=== PATIENT | male | born 1950 | race Two or more races ===

== ENCOUNTER 2018-12-22 21:54 | Inpatient (IN) | payer MEDICARE, OTHER ==
[~2018-12-22] VITALS: Ht 170.2 cm; Wt 68.9 kg
--- NOTE | 2018-12-22 22:00 | NUR ---
PT SHEREE FROM STREET +ETOH. ON ARRIVAL PT HYPOTENSIVE, AWARE. PT PLACED ON MONITOR, WILL CONTINUE TO MONITOR.
[2018-12-22] MEDS ORDERED: IV NS 0.9% 1,000 ML BAG IV ONE (23:00)
--- NOTE | 2018-12-22 23:00 | NUR ---
LICENSED TAX CONSULTANT AT BEDSIDE FOR BLOOD DRAW
[2018-12-22 23:11] LABS: BASOPHILS % (AUTO) 0.2 % (0.0-2.0); EOSINOPHILS % (AUTO) 2.6 % (0.0-6.0); HEMATOCRIT 49 % (39-51); LYMPHOCYTES # (AUTO) 3.2 /CMM (0.8-4.8); LYMPHOCYTES % (AUTO) 28.3 % (20.0-44.0); MEAN CORPUSCULAR HGB CONC 33 g/dl (31.0-36.0); MEAN CORPUSCULAR VOLUME 102 fL (80-96); MONOCYTES # (AUTO) 0.8 /CMM (0.1-1.30); NEUTROPHILS % (AUTO) 61.9 % (43.0-81.0); PLATELET COUNT (AUTO) 121 /CMM (150-450); WHITE BLOOD COUNT (AUTO) 11.3 K/uL (4.3-11.0)
[2018-12-22 23:23] LABS: CALCIUM, SERUM 9.5 mg/dL (8.5-10.1); CARBON DIOXIDE 18 mmol/L (21-32); CHLORIDE 98 mmol/L (98-107); CREATININE 2.1 mg/dL (0.6-1.3); GLUCOSE 86 mg/dL (74-106); POTASSIUM 5.2 mmol/L (3.5-5.1); SODIUM SERUM 132 mmol/L (136-145); UREA NITROGEN, BLOOD 30 mg/dL (7-18)
[2018-12-22 23:29] LABS: ALANINE AMINOTRANSFERASE 135 U/L (12-78); ALBUMIN 3.4 g/dL (3.4-5.0); ALCOHOL, BLOOD 101 mg/dL (0-0); ALKALINE PHOSPHATASE 151 U/L (46-116); ASPARTATE AMINOTRANSFERASE 152 U/L (15-37); BILIRUBIN,DIRECT 0.6 mg/dL (0.0-0.2); BILIRUBIN,TOTAL 1.2 mg/dL (0.2-1.0); TOTAL PROTEIN, SERUM 9.3 g/dL (6.4-8.2)
[2018-12-22 23:30] LABS: ACETAMINOPHEN 0 ug/ml (10-30); SALICYLATE 1.1 mg/dL (2.8-20.0)
--- NOTE | 2018-12-22 23:56 | NUR ---
RT CALLED FOR ABG
[2018-12-23] VITALS (7 sets, daily range): BP systolic 121–168; BP diastolic 67–82
[2018-12-23] MEDS ORDERED: VANCOMYCIN 1 GM in IV D5W 250 ML IV ONE ×2
[2018-12-23] MEDS ORDERED: IV NS 0.9% 1,000 ML BAG IV ONE
[2018-12-23] MEDS ORDERED: PIPERACILLIN /TAZOBACTAM 3.375 G in IV D5W 50 ML IV ONE ×2
--- NOTE | 2018-12-23 00:18 | NUR ---
EPIC CABIN MAN PAGED
[2018-12-23 00:22] LABS: ABG BASE EXCESS -9.2 mmol/L; ABG OXYGEN SATURATION 95.9 % (92.0-98.5); ABG PCO2 33.5 mmHg (35.0-45.0); ABG PH 7.299 (7.350-7.450); ABG PO2 99.4 mmHg (75.0-100.0); AaDO2 10.2 mmHg; COHb 1.1 % (0.5-1.5); MetHb 0.4 % (0.0-1.5); O2Hb 94.5 % (94.0-97.0); SITE, ABG Right Brachial; VENT MODE, BG ROOM AIR
[2018-12-23] MEDS ORDERED: ONDANSETRON HCL/PF 4 MG/2 ML VIAL IVP PRN (00:30)
[2018-12-23] MEDS ORDERED: MAGNESIUM HYDROXIDE 30 ML UDC PO PRN (00:30)
[2018-12-23] MEDS ORDERED: MAG HYDROX/AL HYDROX/SIMETH 30 ML UDC PO PRN (00:30)
[2018-12-23] MEDS ORDERED: ACETAMINOPHEN 650 MG/SUPP.RECT RC PRN (00:30)
[2018-12-23] MEDS ORDERED: LORAZEPAM INJ 2 MG/ML VIAL IV PRN (00:30)
--- NOTE | 2018-12-23 00:37 | NUR ---
CALLED FOR TELE BED
[2018-12-23 00:41] LABS: APPEARANCE,URINE Clear (CLEAR); BILIRUBIN,URINE Negative (NEGATIVE); BLOOD, URINE Trace-intact Ery/uL (NEGATIVE); COLOR,URINE Yellow (YELLOW); KETONES,URINE Negative (NEGATIVE); LEUKOCYTE ESTERASE ,URINE Negative (NEGATIVE); NITRITE, URINE Negative (NEGATIVE); PH,URINE 5.5 (5.0-8.0); PROTEIN,URINE Negative (NEGATIVE); UGLUCOSE Negative (NEGATIVE); UROBILINOGEN,URINE 0.2 EU/dL (0.2)
--- NOTE | 2018-12-23 00:54 | NUR ---
BED ASSIGNMENT 308-1
[2018-12-23 01:02] LABS: BACTERIA,URINE Few /HPF (None Seen); RBC,URINE 0-2 /HPF (0-2); SQUAMOUS EPITHELIAL CELL,UR Rare /HPF (None Seen); WBC,URINE 0-2 /HPF (0-3)
--- NOTE | 2018-12-23 01:05 | NUR ---
GAVE REPORT TO JANICE BATRES FOR JALEEL
[2018-12-23] MEDS ORDERED: PIPERACILLIN /TAZOBACTAM 3.375 G VIAL IV ONE (01:19)
[2018-12-23] MEDS ORDERED: VANCOMYCIN 1 GM in IV D5W 250ml IV SCH (01:30)
--- NOTE | 2018-12-23 02:00 | NUR ---
PT TRANSFERRED PER ACLS PROTOCOL. ENDORSE VANCOMYCIN ORDER TO JANICE BATRES
[2018-12-23] MEDS ORDERED: VANCOMYCIN 1 GM VIAL ONE (02:31)
--- NOTE | 2018-12-23 02:45 | NUR ---
PATIENT ADMITTED FROM ER THIS MORNING, VERY DROWSY AND NOT REALLY ANSWERING QUESTIONS. HE IS NOT IN RESPIRATORY DISTRESS. NO ADEQUATE RESPONSE FROM PATIENT. ON RA O2 SATURATION IS 99%. HE HAS BEEN MADE COMFORTABLE IN BED AND COMMENCED ON TREATMENT. WILL MONITOR.
[2018-12-23] MEDS ORDERED: VANCOMYCIN 1 GM in IV D5W 250 ML IV SCH (03:00)
[2018-12-23] MEDS ORDERED: Thiamine 100 MG/ML VIAL ONE (03:03)
[2018-12-23] MEDS: Thiamine 100 MG in IV D5W 50 ML IV SCH (03:41)
[2018-12-23] MEDS: IV NS 0.9% 1,000 ML IV PRN (03:43)
[2018-12-23] MEDS ORDERED: PIPERACILLIN /TAZOBACTAM 2.25 G in IV D5W 50 ML IV SCH (05:00)
[2018-12-23 06:36] LABS: THYROID STIMULATING HORMONE 0.581 uIU/mL (0.358-3.74)
[2018-12-23 07:04] LABS: MAGNESIUM 1.7 mg/dL (1.8-2.4); PHOSPHORUS 4.9 mg/dL (2.5-4.9)
--- NOTE | 2018-12-23 07:30 | NUR ---
DISTRICT SERVICE MANAGER OPENING NOTE RECEIVED PT IN BED, ALERT AND ORIENTED X3-4, DENIES CHEST PAIN, SOB, N/V, BREATHING IS EVEN AND UNLABORED ON ROOM AIR. NO ACUTE DISTRESS NOTED AT THIS TIME, PT ON ACCOUNTS COLLECTOR AND IS SINUS RHYTHM, HR 68 WITH SLIGHTLY ELEVATED P WAVE, K LEVEL UPON ADMISSION 5.2, WILL FOLLOW UP WITH MD. RIGHT AND LEFT FA #22G IVS ARE PATENT, CLEAN, DRY AND INTACT. PT NPO PENDING SWALLOW EVAL, ALL NEEDS ATTENDED TO. BED IS LOCKED AND IN LOWEST POSITION, SIDE RAILS UP X2, BED ALARM ON, CALL LIGHT AND POSSESSIONS WITHIN REACH.
[2018-12-23] MEDS ORDERED: FEE PK DOSING 1 MIN EA MC ONE (07:37)
--- NOTE | 2018-12-23 08:45 | NUR ---
WOOL GRADER NOTE LEFT FA #22G IV INFILTRATED, REMOVED WITH CATHETER TIP INTACT. RIGHT FA #22G FOUND TO BE LEAKING WHEN FLUSHED. ATTEMPTED IV REINSERT X3 WITHOUT SUCCESS. AWAITING ANOTHER RN TO TRY.
[2018-12-23] MEDS ORDERED: PIPERACILLIN /TAZOBACTAM 3.375 G in IV D5W 100 ML IV SCH (09:00)
--- NOTE | 2018-12-23 10:15 | NUR ---
CONCRETE BATCHING PLANT OPERATOR NOTE 4 NURSES TRIED IV INSERT WITHOUT SUCCESS, WILL INFORM PRIMARY HOSPITALIST.
[2018-12-23] MEDS ORDERED: Magnesium 1GM/D5W 100ML PREMIX 100 ML IV SCH (10:23)
--- NOTE | 2018-12-23 10:32 | NUR ---
SURGICAL FIRST ASSISTANT NOTE ORDERS RECEIVED FROM PRIMARY HOSPITALIST TO INSERT MIDLINE, CHARGE NURSE AND NURSING SUP MADE AWARE.
--- NOTE | 2018-12-23 10:40 | NUR ---
MS RN NOTE PER CHARGE NURSE IKE, MIDLINE NURSE WILL BE ON UNIT AT AROUND 1214
--- NOTE | 2018-12-23 10:40 | NUR ---
HEALTH TECHNICIAN NOTE PER PRIMARY HOSPITALIST , NO INTERVENTION AT THIS TIME FOR K LEVEL 5.2 AND LACTIC 2.9. PER CONTINUE WITH IV FLUID HYDRATION, AWARE THAT PT HAS NO IV AND IS PENDING MIDLINE INSERTION.
--- NOTE | 2018-12-23 11:19 | NUR ---
WOUND CARE CONSULT: PT PRESENTS WITH LEFT LOWER LEG WOUND, SCARRING TO LOWER LEGS AND FEET AND TOES WITH DRY ESCHAR TO LEFT 2ND TOE, PRESENT ON ADMISSION. RECOMMEND DPM CONSULT. DR RYAN NOTIFIED OF CONSULT REQUEST. DEFER TO DPM FOR WOUND TREATMENT PLAN. PT IS INDEPENDENT WITH BED MOBILITY AND CONTINENT. WILL SEE PRN. BESS IN AGREEMENT WITH PLAN OF CARE. Addendum: 12/23/18 at 1120 by ELSA BUNDY WNDNU Amended: Links added.
--- NOTE | 2018-12-23 11:30 | NUR ---
MS RN NOTE PER ELSA, MASK LAYOUT DESIGNER SHE WILL INITIATE PODIATRY CONSULT.
[2018-12-23] MEDS: NICOTINE PATCH (14MG) 14 MG PATCH.TD24 TD SCH (11:40)
--- NOTE | 2018-12-23 12:35 | NUR ---
MS RN NOTE PRIMARY HOSPALIST MADE AWARE THAT PT MISSED AM ZOSYN DOSE DUE TO LACK OF IV ACCESS.
--- NOTE | 2018-12-23 12:38 | NUR ---
MS RN NOTE MIDLINE NURSE AT THE BEDSIDE FOR MIDLINE INSERTION
--- NOTE | 2018-12-23 13:20 | NUR ---
MS RN NOTE MIDLINE INSERTED AT THE LEFT UPPER ARM, #18G BY MIDLINE NURSE. FLUIDS RESTARTED AND WILL ADMINISTER IV MEDICATION ORDERED.
[2018-12-23] MEDS: Magnesium 1GM/D5W 100ML PREMIX 100 ML IV SCH ×2 (13:27→15:35)
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
[2018-12-23 13:53] LABS: CREATININE, URINE 36.8 MG/DL (30.0-125.0); URINE TOTAL PROTEIN 18.5 mg/dL (0-11.9)
[2018-12-23 13:58] LABS: APPEARANCE,URINE CLEAR (CLEAR); BILIRUBIN,URINE NEGATIVE (NEGATIVE); BLOOD, URINE NEGATIVE Ery/uL (NEGATIVE); COLOR,URINE YELLOW (YELLOW); KETONES,URINE NEGATIVE (NEGATIVE); LEUKOCYTE ESTERASE ,URINE NEGATIVE (NEGATIVE); NITRITE, URINE NEGATIVE (NEGATIVE); PH,URINE 6.5 (5.0-8.0); PROTEIN,URINE NEGATIVE (NEGATIVE); UGLUCOSE NEGATIVE (NEGATIVE)
[2018-12-23] MEDS: ZOSYN IVPB 3.375 G in IV D5W 50ml IV SCH ×2 (14:40→17:14)
[2018-12-23 15:23] LABS: BACTERIA,URINE None seen /HPF (None Seen); EOSINOPHIL,URINE None Seen; RBC,URINE 0-2 /HPF (0-2); SQUAMOUS EPITHELIAL CELL,UR Few /HPF (None Seen); WBC,URINE 0-2 /HPF (0-3)
--- NOTE | 2018-12-23 16:00 | NUR ---
MS RN NOTE PT REPORTED HAVING LARGE WATERY DIARRHEA INTO TOILET, PRIMARY HOSPITALIST MADE AWARE, ORDERS TO SEND STOOL FOR C.DIFF OBTAINED AND CARRIED OUT. INFORMED PT OF NEED FOR COLLECTION AND HAT PLACED IN TOILET.
--- NOTE | 2018-12-23 16:42 | NUR ---
MS RN NOTE STOOL FOR C.DIFF SAMPLE HANDLED DIRECTLY TO CED IN LAB PER PROTOCOL.
[2018-12-23] MEDS ORDERED: VITAMINS A AND D 56.7 GM TUBE TP PRN (17:30)
[2018-12-23] MEDS ORDERED: LOPERAMIDE HCL (2 MG CAP) 2 MG CAPSULE PO PRN (17:30)
--- NOTE | 2018-12-23 17:59 | NUR ---
MS RN NOTE INFORMED PRIMARY HOSPITALIST THAT PT HAS NEW ONSET NAUSEA AND 1 EPISODE OF EMESIS WITHOUT BLOOD, ABD IS NOT TENDER, NON-DISTENDED, AND PT REPORTS PAIN APPROXIMATELY 2 INCHES ABOVE UMBILICUS THAT "JUST HURTS" IN ADDITION TO THE NEW DIARRHEA FROM EARLIER TODAY. ORDERS RECEIVED FOR STAT CT OF THE ABD AND PELVIS WITHOUT CONTRAST. CONFIRMED VIA READ BACK AND CARRIED OUT.
--- NOTE | 2018-12-23 18:05 | NUR ---
MS RN NOTE PT OFF UNIT FOR CT OF THE ABD AND PELVIS WITHOUT CONTRAST.
--- NOTE | 2018-12-23 18:20 | NUR ---
MS RN NOTE PT BACK ON UNIT FROM CT OF ABD AND PELVIS.
--- NOTE | 2018-12-23 18:29 | NUR ---
MS RN CLOSING NOTE PT IN BED, ALERT AND ORIENTED X4, DENIES CHEST PAIN, SOB, HAD 1 EPISODE OF NAUSEA WITH NON-BLOODY EMESIS AND ABD PAIN, CURRENTLY RATING PAIN 4/10 AND NAUSEA THAT HAS IMPROVED WITH ZOFRAN 4MG IV ADMINISTRATION. ABD IS SOFT, NON-TENDER, NON-DISTENDED AT THIS TIME, CT OF THE ABD AND PELVIS WO CONTRAST REPORT PENDING. PT HAS 3 EPISODES OF LOOSE DIARRHEA DURING THE SHIFT, C.DIFF SAMPLE COLLECTED AND SENT TO LAB PER PROTOCOL, BREATHING IS EVEN AND UNLABORED ON ROOM AIR. NO ACUTE DISTRESS NOTED AT THIS TIME. LEFT UPPER ARM MIDLINE IS INFUSING NS @ 100ML/HR WITHOUT REDNESS OR SWELLING. ASSISTED WITH ADLS, WOUND CARE PROVIDED ORDERED, ALL NEEDS ATTENDED TO. BED IS LOCKED AND IN LOWEST POSITION, SIDE RAILS UP X2, BED ALARM ON, CALL LIGHT AND POSSESSIONS WITHIN REACH. WILL ENDORSE TO SENIOR TECHNICAL SPECIALIST NURSE FOR CONTINUITY OF CARE.
--- NOTE | 2018-12-23 19:20 | NUR ---
MS/RN OPENING NOTES PT RECEIVED AWAKE, SITTING UP IN BED. A/OX3. ON ROOM AIR, BREATHING EVEN AND UNLABORED. DENIES SOB, NOTES 3/10 ABDOMINAL PAIN AND NAUSEA AT THIS TIME. ELIZABETH RAO AND MD NOTIFIED. PENDING ORDER FOR ADDITIONAL ANTIEMETIC. JOHANN MIDLINE PATENT AND INTACT RUNNING IVF ORDERED. NO NEEDS EXPRESSED AT THIS TIME. PENDING RESULT OF CT ABDOMEN/PELVIS WO CONTRAST. BED IN LOW/LOCKED POSITION WITH CALL LIGHT IN REACH. BILAT. UPPER SIDE RAILS IN PLACE. WILL CONTINUE TO MONITOR
[2018-12-23] MEDS ORDERED: METOCLOPRAMIDE HCL 10 MG/2 ML VIAL IV PRN (19:30)
[2018-12-23] MEDS ORDERED: VANCOMYCIN 0.75 GM in IV D5W 250 ML IV SCH (22:00)
--- NOTE | 2018-12-23 23:08 | NUR ---
MS/RN NOTES LUI STEELE NOTIFIED OF CT ABDOMEN/PELVIS WO CONTRAST RESULT. NNO
[2018-12-24] MEDS: ZOSYN IVPB 3.375 G in IV D5W 50ml IV SCH ×5 (00:21→23:42)
[2018-12-24] MEDS: MORPHINE SULFATE INJ 2 MG/ML DISP.SYRIN IV PRN ×2 (01:23→15:29)
[2018-12-24] MEDS: Thiamine 100 MG in IV D5W 50 ML IV SCH (01:59)
[2018-12-24] MEDS: IV NS 0.9% 1,000 ML IV PRN ×2 (05:58→23:36)
--- NOTE | 2018-12-24 07:23 | NUR ---
MS/RN CLOSING NOTES PT AWAKE, SITTING UP IN BED. A/OX3. REMAINS ON ROOM AIR, BREATHING EVEN AND UNLABORED. DENIES SOB AND PAIN AT THIS TIME. NO EPISODE OF VOMITING OR DIARRHEA DURING SHIFT. IV REGLAN AND MORPHINE EFFECTIVE. JOHANN MIDLINE PATENT AND INTACT RUNNING IVF ORDERED. NO SIGNIFICANT CHANGES OVERNIGHT. ALL NEEDS MET AND ANTICIPATED. BED REMAINS IN LOW/LOCKED POSITION WITH CALL LIGHT IN REACH. HOB ELEVATED. BILAT. UPPER SIDE RAILS IN PLACE. ENDORSED TO DAY SHIFT RN JALEEL.
[2018-12-24 07:24] LABS: ALBUMIN 2.5 g/dL (3.4-5.0); BILIRUBIN,TOTAL 2.4 mg/dL (0.2-1.0); CALCIUM, SERUM 8.4 mg/dL (8.5-10.1); CREATININE 0.9 mg/dL (0.6-1.3); MAGNESIUM 1.5 mg/dL (1.8-2.4); PHOSPHORUS 2.9 mg/dL (2.5-4.9); POTASSIUM 3.8 mmol/L (3.5-5.1); TOTAL PROTEIN, SERUM 7.3 g/dL (6.4-8.2)
[2018-12-24 07:38] LABS: BASOPHILS % (AUTO) 0.5 % (0.0-2.0); EOSINOPHILS % (AUTO) 1.3 % (0.0-6.0); HEMATOCRIT 42 % (39-51); HEMOGLOBIN 14.4 g/dL (13.5-17.5); LYMPHOCYTES # (AUTO) 1.5 /CMM (0.8-4.8); LYMPHOCYTES % (AUTO) 15.9 % (20.0-44.0); MEAN CORPUSCULAR HGB CONC 34 g/dl (31.0-36.0); MEAN CORPUSCULAR VOLUME 98 fL (80-96); MONOCYTES # (AUTO) 0.8 /CMM (0.1-1.30); MONOCYTES % (AUTO) 8.3 % (2.0-12.0); NEUTROPHILS # (AUTO) 6.7 /CMM (1.8-8.9); PLATELET COUNT (AUTO) 109 /CMM (150-450); RED BLOOD CELL COUNT(AUTO) 4.31 MIL/uL (4.5-6.0); WHITE BLOOD COUNT (AUTO) 9.1 K/uL (4.3-11.0)
[2018-12-24 08:00] VITALS: BP 164/87
--- NOTE | 2018-12-24 08:00 | NUR ---
M/S CONTROLLER OPERATIONS AND HR MANAGER: INITIAL ASSESSMENT RECEIVED PT IN BED AWAKE, A/OX4. NO C/O PAIN OR ANY DISCOMFORT. LLE DRESSING IN PLACE, CLEAN, AND DRY. INSTRUCTED TO CALL FOR ASSISTANCE. WILL CONTINUE TO MONITOR.
--- NOTE | 2018-12-24 08:45 | NUR ---
M/S AUTOMOBILE UPHOLSTERER: MD VISIT SEEN AND EXAMINED BY [facility] AT THIS TIME.
[2018-12-24] MEDS: NICOTINE PATCH (14MG) 14 MG PATCH.TD24 TD SCH (09:12)
[2018-12-24] MEDS: Magnesium 1GM/D5W 100ML PREMIX 100 ML IV SCH ×3 (09:29→11:03)
--- NOTE | 2018-12-24 12:00 | NUR ---
M/S SENIOR SOFTWARE ENGINEERING MANAGER: NOTES LUNCH SERVED. HOB ELEVATED. INSTRUCTED TO CALL FOR ASSISTANCE. WILL MONITOR.
[2018-12-24] MEDS: VANCOMYCIN 1 GM in IV D5W 250 ML IV SCH (13:18)
--- NOTE | 2018-12-24 13:55 | NUR ---
m/s school fundraising director: notes tx done to lle wound. instructed to call for assistance. will continue to monitor.
--- NOTE | 2018-12-24 15:29 | NUR ---
M/S MEDICAL DOCTOR NUCLEAR MEDICINE: NOTES C/O 910 BACK PAIN, MEDICATED WITH MORPHINE 4MG IVP BY RN. INSTRUCTED TO CALL FOR ASSISTANCE. WILL CONTINUE TO MONITOR.
[2018-12-24 16:00] VITALS: BP 140/74
--- NOTE | 2018-12-24 17:00 | NUR ---
m/s python programmer: notes resting comfortable in bed with no distress noted. instructed to call for assistance. will continue to monitor.
--- NOTE | 2018-12-24 19:15 | NUR ---
m/s chief nursing executive: notes bedside report given to homero (rn) for continuity of care.
--- NOTE | 2018-12-24 19:20 | NUR ---
MS/RN NOTES RECEIVED PT. LYING IN BED. PT. IS AWAKE, ALERT AND ORIENTED X3. BREATHING EVEN AND UNLABORED ON ROOM AIR. NO SOB, RESPIRATORY DISTRESS OR COMPLAINTS OF PAIN NOTED AT THIS TIME. PT. WITH LEFT UPPER ARM MIDLINE PRESENT, PATENT AND INTACT ADMINISTERING TO PT. NS @ 100ML/HR. BED LOCKED AND IN LOWEST POSITION, SIDE RAILS UP X3, BED ALARM ON, CALL LIGHT WITHIN REACH, WILL CONTINUE TO MONITOR.
[2018-12-24 20:15] VITALS: BP 154/82
[2018-12-24 20:32] VITALS: BP 162/85
[2018-12-24] MEDS: THIAMINE HCL 100 MG TABLET PO SCH (23:36)
[2018-12-25] MEDS: VANCOMYCIN 1 GM in IV D5W 250 ML IV SCH ×2 (01:05→12:02)
[2018-12-25] MEDS: ZOSYN IVPB 3.375 G in IV D5W 50ml IV SCH ×2 (06:16→12:57)
[2018-12-25 06:21] LABS: BASOPHILS % (AUTO) 0.4 % (0.0-2.0); EOSINOPHILS % (AUTO) 3.3 % (0.0-6.0); HEMATOCRIT 40 % (39-51); HEMOGLOBIN 13.5 g/dL (13.5-17.5); LYMPHOCYTES # (AUTO) 1.4 /CMM (0.8-4.8); LYMPHOCYTES % (AUTO) 17.7 % (20.0-44.0); MEAN CORPUSCULAR HGB CONC 34 g/dl (31.0-36.0); MEAN CORPUSCULAR VOLUME 99 fL (80-96); MONOCYTES # (AUTO) 0.8 /CMM (0.1-1.30); MONOCYTES % (AUTO) 9.7 % (2.0-12.0); NEUTROPHILS # (AUTO) 5.4 /CMM (1.8-8.9); NEUTROPHILS % (AUTO) 68.9 % (43.0-81.0); PLATELET COUNT (AUTO) 94 /CMM (150-450); RED BLOOD CELL COUNT(AUTO) 4.03 MIL/uL (4.5-6.0); WHITE BLOOD COUNT (AUTO) 7.8 K/uL (4.3-11.0)
[2018-12-25 06:50] LABS: ALBUMIN 2.4 g/dL (3.4-5.0); BILIRUBIN,TOTAL 1.4 mg/dL (0.2-1.0); CALCIUM, SERUM 8.6 mg/dL (8.5-10.1); CREATININE 0.8 mg/dL (0.6-1.3); MAGNESIUM 1.4 mg/dL (1.8-2.4); PHOSPHORUS 2.9 mg/dL (2.5-4.9); POTASSIUM 3.8 mmol/L (3.5-5.1)
--- NOTE | 2018-12-25 07:08 | NUR ---
MS/RN NOTES PT. IS SITTING UP IN BED. PT. IS AWAKE, ALERT AND ORIENTED X3. BREATHING EVEN AND UNLABORED ON ROOM AIR. NO SOB, RESPIRATORY DISTRESS OR COMPLAINTS OF PAIN NOTED AT THIS TIME AND THROUGHOUT SHIFT. PT. WITH LEFT UPPER ARM MIDLINE PRESENT, PATENT AND INTACT ADMINISTERING TO PT. NS @ 100ML/HR. ALL PT. NEEDS MET. BED LOCKED AND IN LOWEST POSITION, SIDE RAILS UP X3, BED ALARM ON, CALL LIGHT WITHIN REACH, WILL ENDORSE TO DAYSHIFT NURSE FOR CONTINUITY OF CARE.
[2018-12-25 08:00] VITALS: BP 168/90
[2018-12-25] MEDS: NICOTINE PATCH (14MG) 14 MG PATCH.TD24 TD SCH (08:15)
[2018-12-25] MEDS: THIAMINE HCL 100 MG TABLET PO SCH (08:15)
[2018-12-25 08:50] LABS: BAND % (MANUAL) 4 % (0.0-5.0); EOSINOPHILS % (MANUAL) 3 % (0-4); LYMPHOCYTES % (MANUAL) 16 % (16-48); MONOCYTES % (MANUAL) 4 % (0-11.0); NEUTROPHILS % (MANUAL) 73 (42-76)
--- NOTE | 2018-12-25 10:00 | NUR ---
Wound dressing changed
[2018-12-25] MEDS: MORPHINE SULFATE INJ 2 MG/ML DISP.SYRIN IV PRN (11:15)
--- NOTE | 2018-12-25 13:20 | NUR ---
patient states he has home meds but does not remember doses. Patient provided PCP phone.
--- NOTE | 2018-12-25 14:00 | NUR ---
Called to Dr Franco Reyna office to obtain list of home meds.
[2018-12-25 14:19] LABS: *SPE A/G RATIO 0.8 (0.7-1.7); *SPE ALBUMIN 2.9 g/dL (2.9-4.4); *SPE ALPHA-1-GLOBULIN 0.2 g/dL (0.0-0.4); *SPE ALPHA-2-GLOBULIN 0.7 g/dL (0.4-1.0); *SPE BETA GLOBULIN 0.9 g/dL (0.7-1.3); *SPE GLOBULIN, TOTAL 3.6 g/dL (2.2-3.9); *SPE M-SPIKE Not Observed g/dL (Not Observed); *SPEGAMMA GLOBULIN 1.9 g/dL (0.4-1.8)
[2018-12-25 15:18] LABS: PTH, INTACT 12 pg/mL (15-65)
--- NOTE | 2018-12-25 15:30 | NUR ---
received home meds list for the patient. Will inform Tong Chase for med recon.
[2018-12-25] MEDS ORDERED: CHOL200026 PO (15:39)
[2018-12-25] MEDS ORDERED: ALBU18HF2 IH (15:39)
[2018-12-25] MEDS ORDERED: METH5SOL PO (15:39)
[2018-12-25] MEDS ORDERED: THIA500T PO (15:39)
[2018-12-25] MEDS ORDERED: FOLI1TAB16 PO (15:39)
[2018-12-25] MEDS ORDERED: SPIR25TA6 PO (15:39)
[2018-12-25] MEDS ORDERED: BENA20TA9 PO (15:39)
[2018-12-25] MEDS ORDERED: TRAZ-214 PO (15:39)
[2018-12-25 16:00] VITALS: BP 125/87
[2018-12-25] MEDS: LEVOFLOXACIN (750 MG) 750 MG TABLET PO SCH (17:10)
--- NOTE | 2018-12-25 18:27 | NUR ---
Patient awake A/Ox4 , resting in bed with no distress noted. D/C fluids and IV antibiotics per MD. Possible discharge tomorrow. All needs attended. Safety precautions observed. WIll endorse to next shift for JALEEL.
--- NOTE | 2018-12-25 19:15 | NUR ---
MS/RN NOTES RECEIVED PT. LYING IN BED. PT. IS AWAKE, ALERT AND ORIENTED X3. BREATHING EVEN AND UNLABORED ON ROOM AIR. NO SOB, RESPIRATORY DISTRESS OR COMPLAINTS OF PAIN NOTED AT THIS TIME. PT. WITH LEFT UPPER ARM MIDLINE PRESENT, PATENT AND INTACT. BED LOCKED AND IN LOWEST POSITION, SIDE RAILS UP X3, BED ALARM ON, CALL LIGHT WITHIN REACH, WILL CONTINUE TO MONITOR.
[2018-12-25 20:51] VITALS: BP 132/81
[2018-12-26] MEDS ORDERED: ACETAMINOPHEN 325 MG TABLET PO PRN (00:30)
--- NOTE | 2018-12-26 06:54 | NUR ---
MS/RN NOTES PT. IS LYING IN BED RESTING. BREATHING EVEN AND UNLABORED ON ROOM AIR. NO SOB, RESPIRATORY DISTRESS OR COMPLAINTS OF PAIN NOTED AT THIS TIME. PT. WITH LEFT UPPER ARM MIDLINE PRESENT, PATENT AND INTACT. ALL PT. NEEDS MET. BED LOCKED AND IN LOWEST POSITION, SIDE RAILS UP X3, BED ALARM ON, CALL LIGHT WITHIN REACH, WILL ENDORSE TO DAYSHIFT NURSE FOR CONTINUITY OF CARE.
[2018-12-26 07:04] LABS: CALCIUM, SERUM 8.9 mg/dL (8.5-10.1); CREATININE 0.8 mg/dL (0.6-1.3); POTASSIUM 3.5 mmol/L (3.5-5.1)
[2018-12-26 08:00] VITALS: BP 157/78
[2018-12-26] MEDS: LEVOFLOXACIN (750 MG) 750 MG TABLET PO SCH (09:24)
[2018-12-26] MEDS: NICOTINE PATCH (14MG) 14 MG PATCH.TD24 TD SCH (09:24)
[2018-12-26] MEDS: THIAMINE HCL 100 MG TABLET PO SCH (09:24)
[2018-12-26] MEDS ORDERED: MAGNESIUM OXIDE 400 MG TABLET PO ONE (11:00)
[2018-12-26] MEDS ORDERED: LEVO750T21 PO (13:31)
--- NOTE | 2018-12-26 15:09 | NUR ---
Pt. is being discharged to [facility] located at [address] [place] [address] . Homeless Patient Waiver Form was placed in the chart for pt. to sign upon discharge. SW informed LUPE Harris with aforementioned information and waiver needing signature from pt. upon discharge.
--- NOTE | 2018-12-26 15:17 | NUR ---
report called to Filemon romero from [facility]
--- NOTE | 2018-12-26 16:15 | NUR ---
Patient D/c to SN[facility] , cleared by MD. Patient Awake A/O x 4 , vs are stable on room air and within baseline. Patient received D/C instructions and education: verbalized understanding. Patient sighed homeless waiver form; d/c instructions form and valuable form (all belongings with the patient). D/C pictures taken and placed in the chart. IV line and ID wrist band removed. Patient picked uo by [facility].
== END 2018-12-26 16:10 | DRG 432 ==
LOC: ER 21:56 → TELE 12-23 00:49 → MED 12-23 09:59
PROVIDERS: ADMIT Hospitalist; ATTEND Hospitalist
PROC: 05HC33Z Insertion of Infusion Device into Left Basilic Vein, Percutaneous Approach (ICD-10-PCS; principal; 2018-12-23)
DX: K70.30 Alcoholic cirrhosis of liver without ascites (principal); G92 Toxic encephalopathy; N17.0 Acute kidney failure with tubular necrosis; E87.2 Acidosis; J98.11 Atelectasis; E87.1 Hypo-osmolality and hyponatremia; F10.129 Alcohol abuse with intoxication, unspecified; Y90.5 Blood alcohol level of 100-119 mg/100 ml; E87.5 Hyperkalemia; E83.42 Hypomagnesemia; Z59.0 Homelessness; K80.20 Calculus of gallbladder without cholecystitis without obstruction; Z86.73 Personal history of transient ischemic attack (TIA), and cerebral infarction without residual deficits; M47.816 Spondylosis without myelopathy or radiculopathy, lumbar region; I10 Essential (primary) hypertension; K57.30 Diverticulosis of large intestine without perforation or abscess without bleeding; K52.9 Noninfective gastroenteritis and colitis, unspecified; B19.20 Unspecified viral hepatitis C without hepatic coma; Z87.891 Personal history of nicotine dependence; F14.10 Cocaine abuse, uncomplicated; S81.802A Unspecified open wound, left lower leg, initial encounter; X58.XXXA Exposure to other specified factors, initial encounter; Y92.9 Unspecified place or not applicable; E27.8 Other specified disorders of adrenal gland; G89.29 Other chronic pain
CPT/HCPCS: 36415; 36569; 36600; 70450-TC; 71045-TC; 76700-TC; 80048-TC; 80053-TC; 80061-TC; 80074; 80076-TC; 80202-TC; 80305; 81000-TC; 82140-TC; 82550-TC; 82570-TC; 82803-TC; 83605-TC; 83735-TC; 83970; 84100-TC; 84155; 84155-TC; 84165; 84300-TC; 84443-TC; 84484-TC; 85025-TC; 87040-TC; 87081-TC; 87340; 87806; 92526; 92611-TC; 97110-TC; 97116-TC; 97530-TC; 97535-TC; G0378; G0480; J2270; J2405; J2543; J2765; J3370; J3411; J3475; J7030; J7060

== ENCOUNTER 2019-01-20 21:28 | Inpatient (IN) | payer MEDICARE, OTHER ==
[~2019-01-20] VITALS: Ht 170.2 cm; Wt 68.0 kg
[~2019-01-20 21:28] MED LIST: ALBU18HF2 IH; BENA20TA9 PO; CHOL200026 PO; FOLI1TAB16 PO; LEVO750T21 PO; METH5SOL PO; SPIR25TA6 PO; THIA500T PO; TRAZ-214 PO
--- NOTE | 2019-01-20 21:55 | NUR ---
PT BIBS. C/O "HAVE BILAT L E WOUNDS" FROM [facility]. [facility] HAS BEEN APPLYING TOPICAL OINTMENT TO WOUNDS. -SOB
[2019-01-20 22:37] LABS: BASOPHILS # (AUTO) 0.1 /CMM (0.0-0.2); BASOPHILS % (AUTO) 0.8 % (0.0-2.0); EOSINOPHILS % (AUTO) 0.7 % (0.0-6.0); HEMATOCRIT 35 % (39-51); HEMOGLOBIN 11.6 g/dL (13.5-17.5); LYMPHOCYTES # (AUTO) 1.1 /CMM (0.8-4.8); LYMPHOCYTES % (AUTO) 8.4 % (20.0-44.0); MEAN CORPUSCULAR HGB CONC 33 g/dl (31.0-36.0); MEAN CORPUSCULAR VOLUME 97 fL (80-96); MONOCYTES # (AUTO) 1.1 /CMM (0.1-1.30); MONOCYTES % (AUTO) 8.5 % (2.0-12.0); NEUTROPHILS # (AUTO) 10.9 /CMM (1.8-8.9); NEUTROPHILS % (AUTO) 81.6 % (43.0-81.0); PLATELET COUNT (AUTO) 187 /CMM (150-450); WHITE BLOOD COUNT (AUTO) 13.4 K/uL (4.3-11.0)
[2019-01-20 22:45] LABS: CALCIUM, SERUM 8.5 mg/dL (8.5-10.1); CREATININE 0.7 mg/dL (0.6-1.3); POTASSIUM 4.1 mmol/L (3.5-5.1)
[2019-01-20 22:56] LABS: BILIRUBIN,DIRECT 0.4 mg/dL (0.0-0.2); BILIRUBIN,TOTAL 0.6 mg/dL (0.2-1.0)
[2019-01-20] MEDS ORDERED: IV NS 0.9% 1,000 ML BAG IV ONE (23:00)
--- NOTE | 2019-01-20 23:41 | NUR ---
REPORT GIVEN TO REMINGTON BATRES
[2019-01-21] MEDS ORDERED: VANCOMYCIN 1 GM in IV NS 0.9% 250 ML IV STA (00:25)
[2019-01-21] MEDS ORDERED: PIPERACILLIN /TAZOBACTAM 3.375 G in IV D5W 50 ML IV ONE (00:30)
[2019-01-21] MEDS ORDERED: ONDANSETRON HCL/PF 4 MG/2 ML VIAL IVP PRN (00:30)
[2019-01-21] MEDS ORDERED: ACETAMINOPHEN 325 MG TABLET PO PRN (00:30)
[2019-01-21] MEDS ORDERED: MAGNESIUM HYDROXIDE 30 ML UDC PO PRN (00:30)
[2019-01-21] MEDS ORDERED: MAG HYDROX/AL HYDROX/SIMETH 30 ML UDC PO PRN (00:30)
[2019-01-21] MEDS ORDERED: VANCOMYCIN 1 GM VIAL ONE (00:35)
[2019-01-21] MEDS ORDERED: PIPERACILLIN /TAZOBACTAM 3.375 G VIAL IV ONE (00:35)
[2019-01-21] MEDS ORDERED: MORPHINE SULFATE INJ 4 MG/ML DISP.SYRIN ONE (00:36)
[2019-01-21] MEDS ORDERED: ONDANSETRON HCL/PF 4 MG/2 ML VIAL IVP ONE (01:00)
[2019-01-21] MEDS ORDERED: MORPHINE SULFATE INJ 2 MG/ML DISP.SYRIN IV ONE (01:00)
[2019-01-21] MEDS ORDERED: ALBUTEROL FS 2.5 MG/3 ML VIAL.NEB NEB PRN ×2 (01:00→07:35)
[2019-01-21 01:08] VITALS: BP 132/81
--- NOTE | 2019-01-21 01:08 | NUR ---
MS SECRETARY OF STATE NOTES Received patient from ER via [facility] accompanied by 1 ER staff. Admitted to [facility] under the service of Dr. Cano due to non-healing ulcers. Transferred to bed comfortably. With patent peripheral IV line LAC G#20 with Vanco 1 gm on going initiated from ER. Admission routine done. Pt's belongings inventory completed by the assigned FLOUR WORKER. No complaints of pain/discomfort at this time. With BLE wrapped with Kerlex, with spots of serous on the bandage. Assessed the wound, photos taken and documented. Admitting orders noted and carried. All nursing needs attended. Kept patient on bed clean, dry and comfortable. BLE wounds cleansed with NS, pat dry, applied Xeroform and covered with Kerlex. Wound consult initiated. Kept bed low and locked, siderails x2 up, call light within easy reach. Will continue to monitor accordingly.
--- NOTE | 2019-01-21 06:50 | NUR ---
MS RN CLOSING NOTES Patient asleep on Nguyen's position on bed. On RA, no SOB/respiratory distress noted. All nursing needs attended, no new complaints made. Kept on bed clean, dry and comfortable. On fall precautions, call light within easy reach. Endorsed to the next shift.
[2019-01-21] MEDS ORDERED: FEE PK DOSING 1 MIN EA MC ONE (07:11)
--- NOTE | 2019-01-21 07:30 | NUR ---
MS/RN - Assessment Patient in bed awake, A/O x 4, here for evaluation of non-healing ulcers on his BLE, initial wound care done, pending wound consult. Patient stable on room air, denies pain, afebrile, no complaints overnight. Patient independent with bed mobility. All pressure prevention measures noted to be in place. All needs attended. Fall precautions maintained. Will continue with current medical management.
[2019-01-21] MEDS: PIPERACILLIN /TAZOBACTAM 3.375 G in IV D5W 50 ML IV SCH ×3 (07:51→20:24)
[2019-01-21 08:00] VITALS: BP 106/65
[2019-01-21] MEDS: SPIRONOLACTONE 25 MG TABLET PO SCH (08:14)
[2019-01-21] MEDS: FOLIC ACID 1 MG TABLET PO SCH (08:14)
[2019-01-21] MEDS: BENAZEPRIL HCL 20 MG TABLET PO SCH (08:14)
[2019-01-21] MEDS: VANCOMYCIN 0.75 GM in IV D5W 250 ML IV SCH ×2 (08:25→16:25)
[2019-01-21 13:22] LABS: URINE SODIUM, RANDOM 49 mmol/l (40-220)
[2019-01-21 15:25] LABS: OSMOLALITY,URINE 364 mOS/kg (340-1090)
[2019-01-21 16:00] VITALS: BP 104/70
[2019-01-21] MEDS: NICOTINE PATCH (14MG) 14 MG PATCH.TD24 TD SCH (16:24)
[2019-01-21] MEDS: IV NS 0.9% 1,000 ML IV PRN (16:25)
[2019-01-21] MEDS ORDERED: Z GUARD REMEDY 2 OZ OINT TP SCH (17:30)
[2019-01-21] MEDS ORDERED: LIDOCAINE PATCH 5% (17:36)
[2019-01-21] MEDS ORDERED: SENN-168 PO (17:44)
[2019-01-21] MEDS ORDERED: MULT-439 PO (17:44)
[2019-01-21] MEDS ORDERED: ACET-868 PO (17:44)
[2019-01-21] MEDS ORDERED: BUPR100T5 PO (17:44)
[2019-01-21] MEDS ORDERED: NA P133E RC (17:44)
[2019-01-21] MEDS ORDERED: ZINC220C6 PO (17:44)
[2019-01-21] MEDS ORDERED: PROT946L PO (17:44)
[2019-01-21] MEDS ORDERED: MAGN400O6 PO (17:44)
[2019-01-21] MEDS ORDERED: ASCO500T10 PO (17:44)
--- NOTE | 2019-01-21 18:29 | NUR ---
MS/RN - En of shift summary No significant change in condition seen, denies pain, no apparent distress. IVF NS at 75 ml/hr infusing well on the LFA with no signs of infiltration. Continue Zosyn and Vancomycin. All needs attended and met. Will continue with current medical management. Addendum: 01/21/19 at 1831 by ANTONY MEMBRENO RN typo error - should read End of shift summary
--- NOTE | 2019-01-21 19:05 | NUR ---
MS RN OPENING NOTES Patient in bed awake, A/O x 4. Breathing even and unlabored. No distress noted. Patient stable on room air. Peripheral IV infusing at 75mL/hr. Still pending wound consult. All pressure prevention measures noted to be in place. Fall precautions maintained. Safety measures in place; call light within reach, bed in low, locked position. Will continue to monitor accordingly
[2019-01-21 19:48] VITALS: BP 123/71
[2019-01-21 20:00] VITALS: BP 123/71
[2019-01-21] MEDS: Z GUARD REMEDY 2 OZ OINT TP SCH (20:52)
[2019-01-21] MEDS: HYDROCODONE/APAP 5/325MG 1 EACH TABLET PO PRN (23:00)
[2019-01-22] MEDS: VANCOMYCIN 0.75 GM in IV D5W 250 ML IV SCH ×3 (00:09→16:23)
[2019-01-22] MEDS: ZOLPIDEM TARTRATE 5 MG TABLET PO PRN ×2 (00:16→23:16)
[2019-01-22] MEDS: PIPERACILLIN /TAZOBACTAM 3.375 G in IV D5W 50 ML IV SCH ×4 (02:25→20:18)
--- NOTE | 2019-01-22 06:00 | NUR ---
MS RN NOTES Patient's dressing on bilateral lower extremities changed
[2019-01-22 06:11] LABS: BASOPHILS % (AUTO) 0.4 % (0.0-2.0); EOSINOPHILS % (AUTO) 1.3 % (0.0-6.0); HEMATOCRIT 32 % (39-51); LYMPHOCYTES # (AUTO) 0.9 /CMM (0.8-4.8); LYMPHOCYTES % (AUTO) 8.7 % (20.0-44.0); MEAN CORPUSCULAR HGB CONC 34 g/dl (31.0-36.0); MEAN CORPUSCULAR VOLUME 97 fL (80-96); MONOCYTES # (AUTO) 0.6 /CMM (0.1-1.30); MONOCYTES % (AUTO) 5.7 % (2.0-12.0); NEUTROPHILS # (AUTO) 8.6 /CMM (1.8-8.9); NEUTROPHILS % (AUTO) 83.9 % (43.0-81.0); PLATELET COUNT (AUTO) 173 /CMM (150-450); RED BLOOD CELL COUNT(AUTO) 3.34 MIL/uL (4.5-6.0); WHITE BLOOD COUNT (AUTO) 10.3 K/uL (4.3-11.0)
--- NOTE | 2019-01-22 06:22 | NUR ---
MS RN CLOSING NOTES Patient asleep with HOB elevated. Breathing even and unlabored. On RA, no SOB/respiratory distress noted. Peripheral IV infusing at 75mL/hr. No acute changes overnight. All nursing needs attended, no new complaints made. Kept clean, dry and comfortable. On fall precautions; safety measures maintained, call light within easy reach. Will endorse continuity of care to oncoming RN.
[2019-01-22 06:29] LABS: CALCIUM, SERUM 8.4 mg/dL (8.5-10.1); CREATININE 0.7 mg/dL (0.6-1.3); PHOSPHORUS 3.4 mg/dL (2.5-4.9); POTASSIUM 3.5 mmol/L (3.5-5.1)
[2019-01-22 06:33] LABS: THYROID STIMULATING HORMONE 3.338 uIU/mL (0.358-3.74); URIC ACID 1.5 mg/dL (2.6-7.2)
[2019-01-22 08:00] VITALS: BP 126/80
--- NOTE | 2019-01-22 08:00 | NUR ---
MS RN OPENING NOTES Patient in bed awake, A/O x 4. Breathing even and unlabored. No c/o pain/distress noted. Patient stable on room air. Peripheral IV NS infusing at 75mL/hr. Still pending wound consult and disposal operator. All pressure prevention measures noted to be in place. Fall precautions maintained. Safety measures in place; call light within reach, bed in low, locked position. Will continue to monitor accordingly
[2019-01-22] MEDS: FOLIC ACID 1 MG TABLET PO SCH (08:29)
[2019-01-22] MEDS: SPIRONOLACTONE 25 MG TABLET PO SCH (08:29)
[2019-01-22] MEDS: Z GUARD REMEDY 2 OZ OINT TP SCH ×2 (08:30→21:00)
[2019-01-22] MEDS: BENAZEPRIL HCL 20 MG TABLET PO SCH (08:30)
[2019-01-22] MEDS: NICOTINE PATCH (14MG) 14 MG PATCH.TD24 TD SCH (08:30)
[2019-01-22] MEDS: METHADONE HCL 10 MG TABLET PO SCH (08:34)
[2019-01-22] MEDS: HYDROCODONE/APAP 5/325MG 1 EACH TABLET PO PRN ×2 (11:57→23:16)
--- NOTE | 2019-01-22 13:22 | NUR ---
DEB MCDOWELL WOUND CAME TO DO WOUND DEBRIDEMENT ON PT'S RT FOOT AND RLE-PT TOLERATED WELL.
[2019-01-22] MEDS: ENSURE ENLIVE 237 ML LIQUID (VANILLA) PO SCH ×2 (14:20→16:23)
[2019-01-22] MEDS: DAKINS QUARTER STRENGTH (0.125%) 480 ML BOTTLE TOP SCH (14:21)
--- NOTE | 2019-01-22 14:36 | NUR ---
Social service consult requested by Dr. Cano for ETOH abuse. Pt. is a 68 year old male who was admitted to [facility] for non healing wound. SW met with pt. bedside. Pt's last date of admission to [facility] was on December 23, 2018. Pt. is alert and oriented x 3. Pt. was sitting upright on his bed during the assessment. Pt. is cooperative and pleasant. Pt. states her resides at [facility] located at [address] [place] [address]. . Prior to being at [facility], pt. was at [facility] in their Detox program. Pt. completed the program. Pt. states he hasn't been drinking alcohol since then. Pt. states prior to detox, he was drinking 6 to 12 packs of beer daily. Pt. denies any drug use. Pt. smokes 4 to 5 cigarettes per day. Pt. has no psychiatric history. Pt. declined any alcohol treatment referrals. Pt. to be discharged back to [facility] when medically cleared.
[2019-01-22 16:00] VITALS: BP 125/73
[2019-01-22] MEDS: IV NS 0.9% 1,000 ML IV PRN (16:23)
--- NOTE | 2019-01-22 18:44 | NUR ---
MS RN CLOSING NOTES Patient asleep with HOB elevated. Breathing even and unlabored. On RA, no SOB/respiratory distress noted. Peripheral IV infusing at 75mL/hr. No acute changes overnight. All nursing needs attended, no new complaints made. Kept clean, dry and comfortable. On MRSA nares contact isolation and fall precautions; safety measures maintained, call light within easy reach. Will endorse continuity of care to oncoming RN.
--- NOTE | 2019-01-22 19:10 | NUR ---
MS RN OPENING NOTES Received patient, awake on bed. With peripheral IV line LFA G#24 with NS infusing well, no complaints/discomfort noted at this time. S/P R leg wound debridement. Kept on bed clean, dry and comfortable. Call light within easy reach. Will continue to monitor accordingly.
[2019-01-22 20:00] VITALS: BP 112/66
[2019-01-22] MEDS: Z GUARD REMEDY 2 OZ OINT TP PRN (21:01)
[2019-01-22] MEDS: MUPIROCIN OINT 2% 22 GM TUBE SCH (21:01)
[2019-01-23] MEDS: VANCOMYCIN 0.75 GM in IV D5W 250 ML IV SCH ×3 (00:10→17:20)
[2019-01-23] MEDS: PIPERACILLIN /TAZOBACTAM 3.375 G in IV D5W 50 ML IV SCH ×4 (02:24→20:29)
--- NOTE | 2019-01-23 07:27 | NUR ---
MS RN CLOSING NOTES Patient asleep, easily awaken. No new complaints made, afebrile the whole shift. All due meds given as ordered, no ASE noted. All nursing needs attended. Kept on bed clean, dry, and comfortable. On fall precautions. Call light at bedside. Endorsed to the next shift.
[2019-01-23 08:00] VITALS: BP 114/70
[2019-01-23] MEDS: FOLIC ACID 1 MG TABLET PO SCH (08:00)
[2019-01-23] MEDS: SPIRONOLACTONE 25 MG TABLET PO SCH (08:00)
[2019-01-23] MEDS: NICOTINE PATCH (14MG) 14 MG PATCH.TD24 TD SCH (08:00)
--- NOTE | 2019-01-23 08:00 | NUR ---
MS RN OPENING NOTES Patient in bed awake, A/O x 4. Breathing even and unlabored. No c/o pain/distress noted. Patient stable on room air. Peripheral IV NS infusing at 75mL/hr. Still pending wound consult and linux administrator. All pressure prevention measures noted to be in place. Fall precautions maintained. Safety measures in place; call light within reach, bed in low, locked position. Will continue to monitor accordingly
[2019-01-23] MEDS: METHADONE HCL 10 MG TABLET PO SCH (08:01)
[2019-01-23] MEDS: ENSURE ENLIVE 237 ML LIQUID (VANILLA) PO SCH ×2 (08:02→17:20)
[2019-01-23] MEDS: MUPIROCIN OINT 2% 22 GM TUBE SCH ×2 (08:02→20:32)
[2019-01-23] MEDS: DAKINS QUARTER STRENGTH (0.125%) 480 ML BOTTLE TOP SCH (08:03)
[2019-01-23] MEDS: BENAZEPRIL HCL 20 MG TABLET PO SCH (08:08)
[2019-01-23] MEDS: Z GUARD REMEDY 2 OZ OINT TP PRN ×2 (09:00→20:29)
[2019-01-23] MEDS: Z GUARD REMEDY 2 OZ OINT TP SCH ×2 (09:00→20:32)
[2019-01-23] MEDS: MULTIVITAMINS,THERAGRAN 1 UDTAB TABLET PO SCH (09:00)
[2019-01-23] MEDS ORDERED: LIDOCAINE HCL/PF 1% 30 ML SDV IJ ONE (10:30)
--- NOTE | 2019-01-23 10:55 | NUR ---
WOUND CARE CONSULT WOUND CARE RECEIVED CONSULT FOR BLE WOUNDS. WOUND CARE WILL DEFER CONSULT AND ALL TREATMENT PLANS TO PLASTIC SURGICAL TEAM WHO ARE CURRENTLY FOLLOWING THIS PATIENT. PATIENT WITH NUZHAT AT 14, ALL PRESSURE ULCER PREVENTION MEASURES ARE NOTED TO BE IN PLACE AT THIS TIME. WILL SEE PRN.
--- NOTE | 2019-01-23 14:30 | NUR ---
PT MADE XL BOWEL MOVEMENT .KEPT CLEAN AND DRY.PT WAS SEEN BY DR YRAN AND DID WOUND TX AT THE BEDSIDE.
[2019-01-23 16:00] VITALS: BP 113/64
--- NOTE | 2019-01-23 18:25 | NUR ---
PT COMFORTABLY RESTING IN BED WATCHING SPORTS ON TV DENYING PAIN OR DISTRESS.WITH ONGOING IVF NS TO RT AC INFUSING WELL.CALL LIGHT PLACED WITHIN REACH.
--- NOTE | 2019-01-23 19:10 | NUR ---
MS/RN NOTES RECEIVED PT. LYING IN BED. PT. IS AWAKE, ALERT AND ORIENTED X4. BREATHING EVEN AND UNLABORED ON ROOM AIR. NO SOB, RESPIRATORY DISTRESS OR COMPLAINTS OF PAIN NOTED AT THIS TIME. PT. WITH RIGHT AC 24 GAUGE PERIPHERAL IV PRESENT, PATENT AND INTACT ADMINISTERING TO PT. NS @ 75 ML/HR. PT. WITH LEFT FOREARM 20 GAUGE SALINE LOCK PRESENT, PATENT AND INTACT. PT. WITH LEFT FOREARM 24 GAUGE IV SALINE LOCK PRESENT, PATENT AND INTACT. PT. WITH BILATERAL LOWER EXTREMITY DRESSINGS PRESENT, CLEAN, DRY AND INTACT. NO BLEEDING OR DRAINAGE NOTED. BED LOCKED AND IN LOWEST POSITION, SIDE RAILS UP X3, CALL LIGHT WITHIN REACH, WILL CONTINUE TO MONITOR.
[2019-01-23 20:00] VITALS: BP 142/75
[2019-01-23] MEDS: IV NS 0.9% 1,000 ML IV PRN (20:28)
[2019-01-23] MEDS: HYDROCODONE/APAP 5/325MG 1 EACH TABLET PO PRN (22:28)
[2019-01-24] MEDS: VANCOMYCIN 0.75 GM in IV D5W 250 ML IV SCH ×3 (01:54→15:08)
[2019-01-24] MEDS: HYDROCODONE/APAP 5/325MG 1 EACH TABLET PO PRN ×2 (02:37→09:52)
[2019-01-24] MEDS: PIPERACILLIN /TAZOBACTAM 3.375 G in IV D5W 50 ML IV SCH ×4 (02:56→20:17)
[2019-01-24 06:48] LABS: CALCIUM, SERUM 8.3 mg/dL (8.5-10.1); CREATININE 0.7 mg/dL (0.6-1.3); POTASSIUM 4.3 mmol/L (3.5-5.1)
--- NOTE | 2019-01-24 06:55 | NUR ---
MS/RN NOTES PT. IS LYING IN BED. PT. IS AWAKE, ALERT AND ORIENTED X4. BREATHING EVEN AND UNLABORED ON ROOM AIR. NO SOB, RESPIRATORY DISTRESS OR COMPLAINTS OF PAIN NOTED AT THIS TIME. PT. WITH RIGHT AC 24 GAUGE PERIPHERAL IV PRESENT, PATENT AND INTACT ADMINISTERING TO PT. NS @ 75 ML/HR. PT. WITH LEFT FOREARM 20 GAUGE SALINE LOCK PRESENT, PATENT AND INTACT. PT. WITH LEFT FOREARM 24 GAUGE IV SALINE LOCK PRESENT, PATENT AND INTACT. ALL PT. NEEDS MET. WOUND CARE PROVIDED. DR. VALLE SAW PATIENT THIS MORNING AND STATED NO SURGICAL INTERVENTION NEEDED. BED LOCKED AND IN LOWEST POSITION, SIDE RAILS UP X3, CALL LIGHT WITHIN REACH, WILL ENDORSE TO DAYSHIFT NURSE FOR CONTINUITY OF CARE.
--- NOTE | 2019-01-24 07:20 | NUR ---
M/S RN NOTES PATIENT AWAKE IN BED, ALERT AND ORIENTED X4. PATIENT IN NO RESPIRATORY DISTRESS, NO C/O PAIN AT THIS TIME. IV ON THE RAC INTACT AND PATENT, IV NS INFUSING AT 75ML/HR. PATIENT'S NEEDS ATTENDED. BED ON LOWEST LOCKED POSITION, CALL LIGHT WITHIN REACH. WILL CONTINUE TO MONITOR.
[2019-01-24 08:00] VITALS: BP 127/73
--- NOTE | 2019-01-24 08:30 | NUR ---
M/S RN NOTES NOTIFIED PHARMACY OF VANCO TROUGH LEVEL OF 20, PHARMACY TO CHANGE VANCO DOSE.
[2019-01-24] MEDS: MULTIVITAMINS,THERAGRAN 1 UDTAB TABLET PO SCH (08:32)
[2019-01-24] MEDS: FOLIC ACID 1 MG TABLET PO SCH (08:32)
[2019-01-24] MEDS: METHADONE HCL 10 MG TABLET PO SCH (08:33)
[2019-01-24] MEDS: BENAZEPRIL HCL 20 MG TABLET PO SCH (08:33)
[2019-01-24] MEDS: SPIRONOLACTONE 25 MG TABLET PO SCH (08:33)
[2019-01-24] MEDS: NICOTINE PATCH (14MG) 14 MG PATCH.TD24 TD SCH (08:34)
[2019-01-24] MEDS: Z GUARD REMEDY 2 OZ OINT TP PRN (08:37)
[2019-01-24] MEDS: MUPIROCIN OINT 2% 22 GM TUBE SCH ×2 (08:38→20:18)
[2019-01-24] MEDS: DAKINS QUARTER STRENGTH (0.125%) 480 ML BOTTLE TOP SCH (08:38)
[2019-01-24] MEDS: Z GUARD REMEDY 2 OZ OINT TP SCH ×2 (08:44→20:17)
[2019-01-24] MEDS: ENSURE ENLIVE 237 ML LIQUID (VANILLA) PO SCH ×2 (08:46→16:30)
--- NOTE | 2019-01-24 09:00 | NUR ---
M/S RN NOTES NEW ORDER VANCOMYCIN 250ML/HR Q12HR GIVEN AT 0900
[2019-01-24] MEDS: IV NS 0.9% 1,000 ML IV PRN (13:36)
[2019-01-24 16:00] VITALS: BP 130/72
--- NOTE | 2019-01-24 18:24 | NUR ---
M/S RN NOTES PATIENT AWAKE, IN BED, IN NO RESPIRATORY DISTRESS, NO C/O PAIN AT THIS TIME. IV NS INFUSING AT 75ML/HR ON THE RAC, INTACT AND PATENT, NO REDNESS, NO INFILTRATION. BED ON LOWEST LOCKED POSITION, CALL LIGHT WITHIN REACH. WILL ENDORSE TO ONCOMING NURSE.
--- NOTE | 2019-01-24 19:30 | NUR ---
RECEIVED PATIENT IN BED AWAKE. AO X 3, ABLE TO MAKE NEEDS KNOWN. NO ACUTE DISTRESS NOTED. DENIES ANY PAIN AT THIS TIME. IV SITES PATENT, INTACT; IVF INFUSING ON THE ARIADNE ARM IV. WOUND DRESSINGS INTACT. SAFETY REMINDERS GIVEN. ON LOW BED WITH BILATERAL UPPER SIDE RAILS UP. CALL DONNELLY WITHIN EASY REACH. WILL CONTINUE TO MONITOR.
[2019-01-24 20:00] VITALS: BP 127/74
[2019-01-24 20:17] VITALS: BP_SYST 127; BP_SYST 140; BP_DIAS 69; BP_DIAS 74
[2019-01-25] MEDS: HYDROCODONE/APAP 5/325MG 1 EACH TABLET PO PRN ×3 (00:15→15:04)
[2019-01-25] MEDS: PIPERACILLIN /TAZOBACTAM 3.375 G in IV D5W 50 ML IV SCH ×3 (01:56→14:13)
[2019-01-25] MEDS: VANCOMYCIN 0.75 GM in IV D5W 250 ML IV SCH ×2 (03:29→15:03)
--- NOTE | 2019-01-25 06:00 | NUR ---
PATIENT WITH EYES CLOSED, AROUSABLE. RESPIRATIONS EVEN. DUE MEDS GIVEN WITH NO ASE NOTED. NEEDS ATTENDED. KEPT CLEAN AND DRY. CONTACT ISOLATION FOR MRSA NARES MAINTAINED. SAFETY PRECAUTIONS AND COMFORT MEASURES IN PLACE. WILL GIVE REPORT TO DAY SHIFT FOR CONTINUITY OF CARE.
[2019-01-25] MEDS: IV NS 0.9% 1,000 ML IV PRN (06:43)
[2019-01-25 07:40] LABS: CALCIUM, SERUM 8.5 mg/dL (8.5-10.1); CREATININE 0.9 mg/dL (0.6-1.3); POTASSIUM 4.5 mmol/L (3.5-5.1)
[2019-01-25 08:00] VITALS: BP 136/81
--- NOTE | 2019-01-25 08:00 | NUR ---
M/S RN OPENING NOTES RECEIVED PT ON BED, A/O X4 AND ABLE TO MAKE NEEDS KNOWN. RESPIRATION EVEN AND NON LABORED WITH NO ACUTE RESPIRATORY DISTRESS. ABDOMEN SOFT AND NON DISTENDED WITH ACTIVE BOWEL SOUNDS, LBM 01/24/19, WITH BEDSIDE COMMODE AND URINAL. PAIN SCALE OF 7/10 TO BOTH LOWER EXTREMITIES, METHADONE MEDICATION SCHEDULED AT 9AM. SKIN WARM TO TOUCH AND DRY, MULTIPLE WOUND NOTED WITH TREATMENT IN PLACE. IV SITE AT RIGHT UPPER ARM, LEFT FOREARM WITH NO S/SX OF INFILTRATION. ALL CONCERNS ADDRESSED. PLACED CALL LIGHT WITHIN REACH. WILL CONTINUE TO EVALUATE CARE.
--- NOTE | 2019-01-25 08:05 | NUR ---
M/S RN NOTES NS RUNNING AT 75 ML/HR ORDERED
[2019-01-25] MEDS: MULTIVITAMINS,THERAGRAN 1 UDTAB TABLET PO SCH (08:17)
[2019-01-25 08:18] VITALS: BP 136/81
[2019-01-25] MEDS: FOLIC ACID 1 MG TABLET PO SCH (08:18)
[2019-01-25] MEDS: BENAZEPRIL HCL 20 MG TABLET PO SCH (08:18)
[2019-01-25] MEDS: NICOTINE PATCH (14MG) 14 MG PATCH.TD24 TD SCH (08:18)
[2019-01-25] MEDS: SPIRONOLACTONE 25 MG TABLET PO SCH (08:18)
[2019-01-25] MEDS: METHADONE HCL 10 MG TABLET PO SCH (08:20)
[2019-01-25] MEDS: ENSURE ENLIVE 237 ML LIQUID (VANILLA) PO SCH (08:21)
[2019-01-25] MEDS: Z GUARD REMEDY 2 OZ OINT TP PRN ×2 (08:21→08:23)
[2019-01-25] MEDS: DAKINS QUARTER STRENGTH (0.125%) 480 ML BOTTLE TOP SCH (08:22)
[2019-01-25] MEDS: MUPIROCIN OINT 2% 22 GM TUBE SCH (08:22)
[2019-01-25] MEDS: Z GUARD REMEDY 2 OZ OINT TP SCH (08:29)
--- NOTE | 2019-01-25 10:10 | NUR ---
M/S RN NOTES PT SEEN BY [employer]EE[employer]ING PRESS OPERATOR WITH NEW ORDER OF DISCHARGE TO [facility]. NEW ORDER OF BACTRIM DS AND TO CONTINUE BACITRACIN OINTMENT FOR MRSA NARES X 2 MORE WEEKS. PT AWARE
--- NOTE | 2019-01-25 12:25 | NUR ---
M/S RN NOTES CALLED [facility] AND GAVE REPORT TO CAMACHO BATRES, PT ROOM AT 56B.
--- NOTE | 2019-01-25 15:45 | NUR ---
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 RESPIRATION EVEN AND NON LABORED WITH NO ACUTE RESPIRATORY DISTRESS. PAIN MEDICATION - NORCO GIVEN EFFECTIVE AT THIS TIME RATE OF 4/10 BLE. SKIN WARM TO TOUCH AND DRY, TREATMENT PROVIDED AND TOLERATED WELL. PROVIDED EXIT CARE TO PATIENT TOO, AWARE OF DISCHARGE ORDERS. EXIT WOUND PICTURES PLACED ON CHART. ALL CONCERNS ATTENDED. IV SITES REMOVED, NO BLEEDING NOTED. PATIENT LEFT IN STABLE CONDITION TO [facility].
== END 2019-01-25 15:45 | DRG 264 ==
LOC: ER 21:30 → MEDSG2 23:20
PROVIDERS: ADMIT Nurse Practitioner Acute Care; ATTEND Nurse Practitioner Acute Care
PROC: 0KBS0ZZ Excision of Right Lower Leg Muscle, Open Approach (ICD-10-PCS; principal; 2019-01-22)
PROC: 0KBV0ZZ Excision of Right Foot Muscle, Open Approach (ICD-10-PCS; 2019-01-22)
PROC: 0JBP0ZZ Excision of Left Lower Leg Subcutaneous Tissue and Fascia, Open Approach (ICD-10-PCS; 2019-01-23)
PROC: 0KBS0ZZ Excision of Right Lower Leg Muscle, Open Approach (ICD-10-PCS; 2019-01-23)
PROC: 0KBV0ZZ Excision of Right Foot Muscle, Open Approach (ICD-10-PCS; 2019-01-23)
DX: I70.238 Atherosclerosis of native arteries of right leg with ulceration of other part of lower leg (principal); E43 Unspecified severe protein-calorie malnutrition; L03.116 Cellulitis of left lower limb; E87.1 Hypo-osmolality and hyponatremia; L03.115 Cellulitis of right lower limb; L12.0 Bullous pemphigoid; L97.819 Non-pressure chronic ulcer of other part of right lower leg with unspecified severity; L97.829 Non-pressure chronic ulcer of other part of left lower leg with unspecified severity; E86.1 Hypovolemia; Z86.19 Personal history of other infectious and parasitic diseases; I10 Essential (primary) hypertension; F10.10 Alcohol abuse, uncomplicated; G89.29 Other chronic pain; M54.9 Dorsalgia, unspecified; Z59.0 Homelessness; F17.210 Nicotine dependence, cigarettes, uncomplicated; K74.60 Unspecified cirrhosis of liver; J44.9 Chronic obstructive pulmonary disease, unspecified; D53.9 Nutritional anemia, unspecified; E88.09 Other disorders of plasma-protein metabolism, not elsewhere classified; G47.00 Insomnia, unspecified; L08.9 Local infection of the skin and subcutaneous tissue, unspecified; Z68.23 Body mass index [BMI] 23.0-23.9, adult; I70.235 Atherosclerosis of native arteries of right leg with ulceration of other part of foot; L97.519 Non-pressure chronic ulcer of other part of right foot with unspecified severity; I70.248 Atherosclerosis of native arteries of left leg with ulceration of other part of lower leg; Z22.322 Carrier or suspected carrier of Methicillin resistant Staphylococcus aureus
CPT/HCPCS: 36415; 80048-TC; 80061-TC; 80076-TC; 80202-TC; 82533; 83605-TC; 83735-TC; 83935-TC; 84100-TC; 84300-TC; 84443-TC; 84550-TC; 85025-TC; 87040-TC; 87081-TC; 97116-TC; 97530-TC; 97535-TC; A6253; A6403; G0378; J2270; J2405; J2543; J3370; J3490; J7030; J7050; J7060